=== PATIENT | male | born 2000 | race Caucasian/White ===

== ENCOUNTER 2023-12-11 00:35 | Emergency (ER) | payer SELFPAY ==
[2023-12-11 00:37] VITALS: BP 159/80; PULSE 108; RESP 18; TEMP 36.4; O2SAT 99
--- NOTE | 2023-12-11 00:50 | CT_ITS ---
STUDY: CT ABDOMEN AND PELVIS WITHOUT CONTRAST REASON FOR EXAM: Male, 23 years old. right flank pain RADIATION DOSAGE (If Supplied By Facility): CTDIvol = ( 6.24 ) mGy, DLP = ( 304.08 ) mGycm TECHNIQUE: Transaxial images were obtained from the dome of the diaphragm to the symphysis pubis without oral contrast, and without intravenous contrast. Sagittal and coronal images were reconstructed. Individualized dose optimization techniques were used for this CT. COMPARISON: None. FINDINGS: The visualized lung bases are unremarkable. The visualized portions of the heart are within normal limits. Normal liver. Normal gallbladder and extrahepatic biliary system. Normal spleen. Normal pancreas. Normal bilateral adrenal glands. There are several right-sided intrarenal stones, largest seen in the middle pole measuring 3.2 mm. There is mild right-sided hydronephrosis and hydroureter, with right ureter distended to the right UV junction where there is a stone measuring approximately 2 mm seen just beyond the UV junction. There is a stone within the left mid lower renal pole measuring 2.8 mm, otherwise normal left kidney. Normal visualized stomach. Normal small intestine. Normal colon. The appendix is visualized and appears normal. Normal abdominal aorta. Normal inferior vena cava. Normal retroperitoneum. Urinary bladder is incompletely distended, otherwise unremarkable. Normal abdominal wall. Normal osseous structures. CT/Abdomen/Pelvis without Cont IMPRESSION: Mild right-sided hydronephrosis due to a currently passing or just recently passed ureteral stone measuring 3.2 mm, noted just at or just beyond the right UV junction . Bilateral intrarenal stones as described above. Remainder of the exam unremarkable. Electronically Signed: Gabriela Barnard MD at 2:28 EST ,
[2023-12-11] MEDS: Ketorolac 15 MG/ML Vial IV (01:10)
[2023-12-11 01:12] LABS: Bacteria 0 SEEN /hpf (None Seen); Mucous, Urine 0 SEEN /hpf (<or=2+); Red Blood Cells-Urine 0 SEEN /hpf (0-5); Squamous Epithelial Cells - UA 0 SEEN /hpf (0-5)
[2023-12-11 01:13] LABS: Absolute Lymphocyte Count 1.46 X10^3/uL (0.83-4.51); Basophil# 0.05 X10^3/uL; Basophil% 0.4 % (0-1); Eosinophil# 0.03 X10^3/uL; Eosinophils% 0.2 % (0-5); Hematocrit 41.3 % (40-54); Hemoglobin 14.4 g/dL (13.0-16.5); Lymphocyte # 1.46 X10^3/ul (0.83-4.51); Lymphocyte % 11.9 % (19-41); Mean Corp Hgb Conc 34.9 g/dL (32-36); Mean Corpuscular Hgb 29.9 pg (27.0-32.0); Mean Corpuscular Volume 85.9 fL (80-94); Monocyte# 0.67 X10^3/uL; Monocyte% 5.5 % (0-10); NRBC Flagged by Analyzer 0 % (0-5); Neutrophil # 10.01 X10^3/uL (2.7-7.7); Neutrophil % 81.8 % (47-70); Platelet Count 225 K/mm3 (150-450); RBC Distribution Width SD 37.7 fl (35.1-43.9); Red Blood Count 4.81 M/mm3 (4.6-6.2); White Blood Count 12.3 K/mm3 (4.4-11.0)
[2023-12-11 01:14] LABS: Glucose, Dipstick Normal (Normal); Ketone-Dipstick Negative (Negative); Leukocyte Esterase-Dipstick Negative /ul (Negative); Nitrite-Dipstick Negative (Negative); Occult Blood-Urine Negative /ul (Negative); Protein-Dipstick 15 mg/dl (Negative); Urine Bilirubin Dipstick Negative (Negative); Urine Urobilinogen Normal (Normal)
[2023-12-11 01:23] LABS: Color, Urine Yellow (Yellow); Urine Clarity Clear (Clear)
[2023-12-11 01:25] LABS: White Blood Cells 5-10 SEEN /hpf (0-5)
[2023-12-11 01:26] LABS: Anion Gap 5 (5-15); BUN 18 mg/dL (7-18); BUN/Creat Ratio 15.7 RATIO (10-20); Calcium,Total 8.7 mg/dL (8.5-10.1); Chloride 109 mmol/L (98-107); Creatinine, Serum 1.15 mg/dL (0.70-1.30); EST Glomerular Filtration Rate 85 mL/min (>60); Est Glom Filt Rate - Afr Amer 102 mL/min (>60); Glucose 130 mg/dL (74-106); Potassium 3.6 mmol/L (3.5-5.1); Sodium Level 139 mmol/L (136-145)
--- NOTE | 2023-12-11 02:44 | EDS_ITS ---
HPI History of Present Illness Chief Complaint: Abd Pain Informant: patient Onset/Context/Timing Onset: Yesterday Context: Sudden Onset Current Severity: Moderate Maximum Severity: Severe Narrative Narrative: Patient presents with rather abrupt right-sided abdominal and flank pain this evening. He states pain started in the right mid abdomen and after short time felt it was wrapping into his back. He denies urinary symptoms. No history of kidney stones. States he felt well all day. PFSH PFSH Medical History no medical history no medical history Home Medications NK 12/11/23 [History Last Taken Unknown] Allergy/AdvReac Type Severity Reaction Status Date / Time No Known Allergies Allergy Verified 12/11/23 00:44 Surgical History no surgical history Social History Smoking Status: Never smoker ROS ROS ED Constitutional Constitutional ED: Denies chills or fever(s) Eyes Eyes: Denies discharge from eye(s) ENT ENT ED: Denies discharge from eye(s), rhinorrhea or sore throat Cardiovascular Cardiovascular: Denies chest pain Respiratory/Chest Respiratory/Chest: Denies cough or dyspnea Gastrointestinal Gastrointestinal: Reports abdominal pain; Denies diarrhea, nausea or vomiting Genitourinary Genitourinary ED: Denies difficulty urinating, dysuria, hematuria or urinary frequency Musculoskeletal Musculoskeletal: Reports back pain; Denies extremity pain Integumentary Denies Abrasions or rash Psychiatric Psychiatric: Denies anxiety or depression Endocrine Endocrinology: Denies polydipsia or polyuria Allergic/Immunologic Allergic/Immunologic ED: Denies lip swelling or urticaria EXAM Physical Exam Const Vital Signs: 12/11/23 00:37 Temperature 97.6 F L Temperature Source Temporal Pulse Rate 108 H Respiratory Rate 18 Blood Pressure 159/80 H Blood Pressure Mean 106 Pulse Ox 99 Oxygen Delivery Method Room Air Positive well nourished and well developed General Appearance ED: well developed HEENT Reports moist mucous membranes Eyes EOMs intact bilaterally Chest Wall inspection of chest normal and palpation of chest normal Resp normal respiratory effort and clear to auscultation bilaterally Cardio regular rate and regular rhythm GI non-tender Palpation: soft Back/Spine no CVA tenderness Neuro oriented x3 and no sensory deficits noted Motor Exam: strength 5/5 throughout Psych mental status grossly normal Skin no rashes or lesions noted MDM MDM MDM Narrative Medical decision making narrative: Patient did take Tylenol prior to arrival. He is given IV fluids and Toradol. Labwork obtained to evaluate for leukocytosis, anemia, and electrolyte derangement. Urinalysis obtained to evaluate for infection/hematuria. CT flank obtained to evaluate for potential kidney stone versus appendicitis. Lab Data Attestation: I reviewed the patient's lab results. Labs: Laboratory Results - last 24 hr 12/11/23 01:04 WBC 12.3 H RBC 4.81 Hgb 14.4 Hct 41.3 MCV 85.9 MCH 29.9 MCHC 34.9 RDW Std Deviation 37.7 RDW Coeff of Helga 12.0 Plt Count 225 MPV 9.0 Immature Gran % (Auto) 0.200 Neut % (Auto) 81.8 H Lymph % (Auto) 11.9 L [place] % (Auto) 5.5 Eos % (Auto) 0.2 Baso % (Auto) 0.4 Absolute Neuts (auto) 10.0 H Absolute Lymphs (auto) 1.46 Nucleated RBC % 0 Sodium 139 Potassium 3.6 Chloride 109 H Carbon Dioxide 25.0 Anion Gap 5 BUN 18 Creatinine 1.15 Est GFR (MDRD) Af Amer 102 Est GFR (MDRD) Non-Af 85 BUN/Creatinine Ratio 15.7 Glucose 130 H Calcium 8.7 Urine Color Yellow Urine Clarity Clear Urine pH 6.0 Ur Specific [place] 1.020 Urine Protein 15 H Urine Glucose (UA) Normal Urine Ketones Negative Urine Occult Blood Negative Urine Nitrite Negative Urine Bilirubin Negative Urine Urobilinogen Normal Ur Leukocyte Esterase Negative Urine RBC 0 SEEN Urine WBC 5-10 SEEN Ur Squamous Epith Cells 0 SEEN Urine Bacteria 0 SEEN Urine Mucus 0 SEEN Radiography Diagnostic Testing: Clinical Impression(s) from Imaging Studies Abdomen/Pelvis CT 12/11/23 00:50 IMPRESSION: Mild right-sided hydronephrosis due to a currently passing or just recently passed ureteral stone measuring 3.2 mm, noted just at or just beyond the right UV junction . Bilateral intrarenal stones as described above. Remainder of the exam unremarkable. Electronically Signed: Gabriela Barnard MD at 2:28 EST , Treatment and Re-Evaluation :: CBC was a white count of 12.3 with 81% neutrophils. Normal hemoglobin at 14.4. Chemistry studies unremarkable with normal renal function. Urinalysis reveals 5-10 white cells with no evidence of infection or hematuria. CT flank reveals mild right-sided hydronephrosis due to a currently passing or just recently passed ureteral stone measuring 3.2 mm. On repeat evaluation patient resting comfortably. He denies pain at this time. Test results discussed with patient as well as parents at bedside. He will take ibuprofen if needed for pain and increase p.o. fluids. He is given information for Dr. Olvera for follow-up if needed. Patient was advised that there does appear to be a couple more stones in the right kidney that may pass in the future. Discharge Plan Triage Chief Complaint: Abd Pain Other Complaint: Flank Pain ED Provider: Sol Luong Dx/Rx/DC Orders Clinical Impression: Ureterolithiasis Instructions: ED Kidney Stone, Passed Prescriptions: No Action NK Primary Care Provider: Care Physician,No Primary Referrals: Misha Olvera MD [Med Staff - Active Staff] - As Needed Care Physician,No Primary [Primary Care Provider] - Disposition Disposition: Home, Self Care
[2023-12-11 02:53] VITALS: BP 133/79; PULSE 85; RESP 16; O2SAT 97
== END 2023-12-11 02:53 | disposition home or self-care (01) ==
PROVIDERS: Emergency Provider Emergency Medicine; Visit Provider Emergency Medicine
DX: N20.1 Calculus of ureter (principal)
CPT/HCPCS: 74176; 80048; 81001; 85025; 99283; J7030; A4216